=== PATIENT | female | born 1990 | race Hispanic/Latino ===

== ENCOUNTER 2019-07-20 20:21 | Observation (INO) | payer OTHER, SELFPAY ==
--- NOTE | ~2019-07-20 | CT_ITS ---
EXAMINATION: CT abdomen pelvis w con EXAM DATE: 07/20/2019 20:53 INDICATION: Upper abdominal pain for 4 hours. Nausea and vomiting. TECHNIQUE: Spiral CT of the abdomen and pelvis was performed following intravenous injection of 100 m L Omnipaque 350. Axial, coronal and sagittal images were reviewed. The dose-length product (DLP) fo r this examination was 1503.13 mGy-cm. The exposure was tailored according to patient size (auto mA exposure control), and iterative reconstruction (ASIR) was used as additional dose reduction techniqu e. There is no prior study for comparison. FINDINGS: The liver, spleen, adrenal glands and pancreas are unremarkable. There is a poorly periphe rally calcified gallstone measuring about 2 cm within dependent aspect of gallbladder. Gallbladder is moderately distended but otherwise unremarkable. Portal and splenic veins are patent. Kidneys enha nce symmetrically. There is no hydronephrosis. The uterus is anteverted and morphologically normal . The bladder is collapsed at time of imaging limiting evaluation. There is no retroperitoneal or pelvic lymphadenopathy. The appendix is normal. The stomach and small bowel are unremarkable. There is expected amount of c olonic stool. No free intraperitoneal gas. The heart is normal in size. There are no pericardial or pleural effusions. The lung bases are unremarkable. The bones are unremarkable. IMPRESSION: Cholelithiasis, moderately distended but otherwise unremarkable gallbladder. If clinical ly indicated, consider follow-up right upper quadrant sonogram. Reviewed, dictated and finalized at location A. UTER SYSTEMS MANAGER IMPRESSION: Cholelithiasis, moderately distended but otherwise unremarkable gal lbladder. If clinically indicated, consider follow-up right upper quadrant son ogram.
[2019-07-20 20:23] VITALS: BP 132/83; PULSE 87; RESP 18; TEMP 37.4; O2SAT 100
--- NOTE | 2019-07-20 20:33 | ED.ABDPAIN ---
HPI - Abdominal Pain General Chief Complaint: Abdominal Pain Stated Complaint: abd pain Time Seen by Provider: 07/20/19 20:27 Source: patient and RN notes reviewed Mode of arrival: ambulatory Limitations: no limitations History of Present Illness HPI narrative: Pt is a 28 y/o female who presents to the ED with c/o epigastric pain starting around 16:00 this afternoon. She notes that she took some sort of pain medication she found in her home around 18:00, but denied having any relief from the medication. Pt denies any nausea, vomiting, diarrhea, fever, or chills. She currently denies any chance of being . MD elicited complaint: abdominal pain Onset (ago): hour(s) (4) Location: epigastric Relieving factors: nothing Associated symptoms: denies other symptoms Treatments prior to arrival: other (unknown analgesic) Related Data Home Medications Medication Instructions Recorded Confirmed diclofenac sodium 75 mg PO DAILY 07/20/19 07/20/19 doxycycline monohydrate 100 mg PO BID 07/20/19 07/20/19 Allergies Allergy/AdvReac Type Severity Reaction Status Date / Time No Known Allergies Allergy Verified 07/20/19 20:36 Review of Systems Review of Systems: All systems reviewed & are unremarkable except as noted in HPI and below Constitutional: Constitutional: Denies chills and Denies fever(s) Gastrointestinal: Gastrointestinal: Reports abdominal pain (epigastric pain), Denies diarrhea, Denies nausea and Denies vomiting PMFSH Past Medical History Medical History Anemia Depression Oligohydramnios Ovarian cyst Surgical History Surgical History Hx of ovarian cystectomy Social History Social History Smoking status: Former smoker 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 Exam Narrative: Exam Narrative: APPEARANCE: No acute distress, nontoxic, resting in bed EYES: EOMI HEENT: Normocephalic, atraumatic, OMM RESPIRATORY: No respiratory distress Clear to auscultation bilaterally with no rhonchi wheezing or rales. CARDIOVASCULAR: Regular rate and rhythm without murmurs rubs or gallops. ABDOMINAL: Soft, nondistended, tender palpation in epigastric and right upper quadrant, no tenderness left upper quadrant, right lower quadrant left lower quadrant, no rebound or guarding MUSCULOSKELETAl: Moves all extremities. No clubbing, cyanosis or edema. NEURO: Awake and alert. Following commands, speech normal, no focal deficits SKIN:: Warm, dry. No rashes lesions or abrasions PSYCHIATRIC: Normal affect/mood, Course Course Emergency Course: Discussed with patient and family results of workup and diagnosis. Discussed need for admission. Patient and family understand and agree to current treatment plan Consultations Consultation #1: Discussed case with general surgeon, Dr. Astorga. Accepts admission. Requests no antibiotics at this time. Date: 07/20/19 Time: 22:57 Vital Signs Vital signs: Vital Signs Temperature 99.3 F 07/20/19 20:23 Pulse Rate 87 07/20/19 20:23 Respiratory Rate 18 07/20/19 20:23 Blood Pressure 132/83 07/20/19 20:23 Pulse Oximetry 100 07/20/19 20:23 Temperature 99.3 F 07/20/19 20:23 Pulse Rate 64 07/20/19 23:10 Respiratory Rate 20 07/20/19 23:10 Blood Pressure 121/80 07/20/19 23:10 Pulse Oximetry 99 07/20/19 23:10 MDM - Abdominal Pain Lab Data Result diagrams: 07/20/19 20:41 07/20/19 20:47 Labs: Lab Results 07/20/19 07/20/19 07/20/19 Range/Units 20:41 20:41 20:41 WBC 12.6 H (4.5-10.0) K/mm3 RBC 4.47 (4.2-5.4) M/mm3 Hgb 11.0 L (12.0-15.0) g/dL Hct 35.4 L (37.0-47.0) % MCV 79.2 L (80-100) fl MCH 24.6 L (26-34) pg MCHC 31.1 L (32-36) g/dl RDW 17.6 H (11.5-14.5) % Plt Count 383 H (150-375) k/mm3 MPV 10.3 (7.4-10.4) fl Immature Gran % (Auto) 0.3
[2019-07-20] MEDS: KETOROLAC 30 MG/ML VIAL (*BKC) IV PUSH (20:41)
[2019-07-20] MEDS: LACTATED RINGERS 1,000 ML 999 ML IV CONT (20:41)
[2019-07-20 20:47] LABS: Basophils Percent Auto 0.2 % (0.2-1.2); Eosinophils Absolute Auto 0.2 K/mm3 (0-0.3); Eosinophils Percent Auto 1.4 % (0-4.4); Hematocrit 35.4 % (37.0-47.0); Immature Granulocyte Absolute 0.04 K/mm3 (0.00-0.031); Immature Granulocyte Percent A 0.3 % (0-0.5); Lymphocytes Absolute Auto 2.11 K/mm3 (0.9-3.2); Lymphocytes Percent Auto 16.8 % (18.3-44.2); Mean Corpuscular HGB Conc 31.1 g/dl (32-36); Mean Corpuscular Hemoglobin 24.6 pg (26-34); Mean Corpuscular Volume 79.2 fl (80-100); Mean Platelet Volume 10.3 fl (7.4-10.4); Monocytes Absolute Auto 0.8 K/mm3 (0.1-0.6); Monocytes Percent Auto 6.1 % (2.6-8.5); Neutrophils Absolute Auto 9.5 K/mm3 (1.3-6.7); Neutrophils Percent Auto 75.2 % (45.5-73.1); Platelet Count Result 383 k/mm3 (150-375); Red Blood Count 4.47 M/mm3 (4.2-5.4); Red Cell Distribution Width 17.6 % (11.5-14.5); White Blood Count 12.6 K/mm3 (4.5-10.0)
[2019-07-20 20:49] LABS: Blood Urea Nitrogen 11 mg/dL (8-26); Estimated CRCL calculation 119 ml/min; Estimated Glomerular Filt Rate > 60
[2019-07-20 20:50] LABS: Add Urine Microscopic? YES; Appearance Urine Cloudy (Clear); Bacteria Urine Trace /hpf; Bilirubin Urine Negative (Negative); Blood Urine Negative (Negative); Color Urine Yellow (Yellow); Glucose Urine UA Negative (Negative); Ketones Urine Negative (Negative); Leukocyte Esterase Ur Trace LEU/UL (Negative); Mucus Urine Rare /lpf; Nitrate Urine Negative (Negative); Protein Urine 1+ mg/dL (Negative); RBC Urine 0-2 /hpf (0-2); Specific Grav Ur 1.018 (1.001-1.035); Squamous Epithelial Cell Urine Many /hpf (Few); Urobilinogen Urine Negative mg/dL (<2.0)
[2019-07-20 20:58] LABS: Alanine Aminotransferase 45 U/L (4-35); Albumin Level 4.4 g/dL (3.5-5.1); Alkaline Phosphatase 140 U/L (38-126); Aspartate Amino Transferase 62 U/L (14-36); Bilirubin,Total 0.4 mg/dL (0.2-1.3); Blood Urea Nitrogen 12 mg/dL (7-17); Calcium 9.3 mg/dL (8.4-10.2); Carbon Dioxide 26 mmol/L (22-30); Chloride 98 mmol/L (98-107); Estimated CRCL calculation 134 ml/min; Estimated Glomerular Filt Rate > 60; Glucose 114 mg/dL (65-105); Lipase 52 U/L (23-300); Potassium 3.5 mmol/L (3.4-5.0); Sodium 137 mmol/L (137-145)
[2019-07-20 21:31] VITALS: BP 127/84; PULSE 68; RESP 20; O2SAT 99
[2019-07-20] MEDS: MORPHINE SULFATE 4 MG/ML INJ IV PUSH (22:05)
[2019-07-20 22:07] VITALS: BP 123/84; PULSE 71; RESP 20; O2SAT 100
[2019-07-20] MEDS: MORPHINE SULFATE 2 MG/ML INJ IV PUSH (23:09)
[2019-07-20 23:10] VITALS: BP 121/80; PULSE 64; RESP 20; O2SAT 99
[2019-07-20 23:22] VITALS: BP 121/80; PULSE 64; RESP 20; O2SAT 99
[2019-07-20 23:30] VITALS: BP 145/80; PULSE 65; RESP 18; TEMP 36.3; O2SAT 100; BMI 42.5
[2019-07-20] MEDS: LACTATED RINGERS 1,000 ML 125 ML IV CONT (23:33)
--- NOTE | 2019-07-20 23:40 | ADMGEN ---
This patient, Ema Stanford, was admitted to 3 [facility] Surg Room 301-01. Patient/family oriented to hospital policies and general routines including ID bracelet, bed and alarms, visiting hours, pain management, procedures, bathroom and other care routines, personal items, smoking policy, room service/diet, and visiting hours. Valuables list has been completed. Information on how to activate the Rapid Response Team has been discussed. Patient/Family are encouraged to report perceived risks to care and to ask questions if they do not understand what they are told or what they should do.
[2019-07-21] VITALS (13 sets, daily range): BP systolic 109–128; BP diastolic 54–73; PULSE 55–76; RESP 10–21; TEMP 36.2–36.8; O2SAT 96–100; BMI 43.6
[2019-07-21] MEDS: ONDANSETRON INJ 4 MG/2 ML VIAL IV PUSH ×5 (01:03→23:07)
[2019-07-21] MEDS: LACTATED RINGERS 1,000 ML 125 ML IV CONT (06:18)
[2019-07-21 06:28] LABS: Basophils Percent Auto 0.1 % (0.2-1.2); Eosinophils Absolute Auto 0.1 K/mm3 (0-0.3); Eosinophils Percent Auto 1.6 % (0-4.4); Hematocrit 29.6 % (37.0-47.0); Hemoglobin 9.5 g/dL (12.0-15.0); Immature Granulocyte Absolute 0.02 K/mm3 (0.00-0.031); Immature Granulocyte Percent A 0.3 % (0-0.5); Lymphocytes Absolute Auto 1.09 K/mm3 (0.9-3.2); Lymphocytes Percent Auto 15.8 % (18.3-44.2); Mean Corpuscular HGB Conc 32.1 g/dl (32-36); Mean Corpuscular Hemoglobin 24.8 pg (26-34); Mean Corpuscular Volume 77.3 fl (80-100); Mean Platelet Volume 10.1 fl (7.4-10.4); Monocytes Absolute Auto 0.4 K/mm3 (0.1-0.6); Monocytes Percent Auto 5.8 % (2.6-8.5); Neutrophils Absolute Auto 5.3 K/mm3 (1.3-6.7); Neutrophils Percent Auto 76.4 % (45.5-73.1); Platelet Count Result 313 k/mm3 (150-375); Red Blood Count 3.83 M/mm3 (4.2-5.4); Red Cell Distribution Width 17.6 % (11.5-14.5); White Blood Count 6.9 K/mm3 (4.5-10.0)
[2019-07-21 06:36] LABS: Alanine Aminotransferase 64 U/L (4-35); Albumin Level 3.6 g/dL (3.5-5.1); Alkaline Phosphatase 125 U/L (38-126); Aspartate Amino Transferase 80 U/L (14-36); Bilirubin,Total 0.3 mg/dL (0.2-1.3); Blood Urea Nitrogen 10 mg/dL (7-17); Carbon Dioxide 25 mmol/L (22-30); Chloride 102 mmol/L (98-107); Estimated CRCL calculation 156 ml/min; Estimated Glomerular Filt Rate > 60; Glucose 104 mg/dL (65-105); Sodium 136 mmol/L (137-145)
--- NOTE | 2019-07-21 09:11 | PM.IMHP ---
H&P: HPI History of Present Illness Chief complaint: CHOLECYSTITIS Narrative: Ema Stanford is a 28 year old female who presented to the ED yesterday with complaints of epigastric abdominal pain. She reports that this is her 3rd episode of this similar pain. She initially had an episode of epigastric pain new year's day after eating a large meal with ham. She described it as a tight pain and also ?shoulder weakness? that lasted for 1-2 hours and resolved spontaneously. With this episode, she does report having some chest pressure that resolved when the abdominal pain resolved. She then had this occur again 3 days ago. She cannot recall when the pain started and if she had eaten prior to this. She states that she made herself vomit and the pain resolved. Then, yesterday after eating ribs she had a sudden onset of the same type of epigastric pain around 1600, about 2 hours after eating, that was a tight cramping pain. This time, the pain radiated to her mid back. She states her shoulders felt weak again, but her pain did not resolve spontaneously. The pain was unrelenting and she decided to present to the emergency department for further evaluation. CT scan of abdomen and pelvis showed cholelithiasis with moderate distention of the gallbladder, otherwise an unremarkable gallbladder. Labs revealed a slightly elevated white blood cell count of 12,600, hemoglobin 11, and hematocrit 35.4. AST and ALT were slightly elevated, total bilirubin normal, and lipase normal. Our service was contacted for surgical evaluation for concern of acute versus chronic cholecystitis with ongoing abdominal pain. The patient was admitted and made NPO. She was started on IV fluids, analgesics, and antiemetics. The patient is now being seen on medical floor. She reports her abdominal pain has remained constant even with the IV morphine, but has improved some. She is now reporting the pain is a 4/10 on a pain scale and states it is still in the epigastric area radiating to her mid back. She reports nausea with vomiting today. She has vomited 3 times since being admitted. She feels this may be related to the IV morphine. She denies any chest pain or pressure at this time. Denies any shortness of breath, fever, chills, or change in bowel habits. No other complaints at this time. Review of Systems Review of Systems: All systems reviewed & are unremarkable except as noted in HPI and below Constitutional: Constitutional: Reports as per HPI, Denies chills, Denies excessive sweating, Denies fatigue, Denies fever(s), Denies headache(s) and Denies weakness Eyes: Eyes: Denies change in vision and Denies eye pain ENT: Denies dysphagia, Denies dizziness, Denies dry mouth, Denies headache(s), Denies hearing loss and Denies mouth pain Cardiovascular: Cardiovascular: Denies chest pain, Denies pedal edema, Denies radiating jaw, neck or arm pain, Denies dyspnea and Denies dyspnea on exertion Respiratory: Respiratory: Denies cough, Denies dyspnea, Denies dyspnea on exertion and Denies wheezing Gastrointestinal: Gastrointestinal: Reports as per HPI, Reports abdominal pain (Epigastric radiating to her mid back), Denies melena, Denies hematochezia, Denies change in bowel habits, Denies constipation, Denies dysphagia, Denies diarrhea, Reports nausea and Reports vomiting Musculoskeletal: Musculoskeletal: Denies abnormal gait, Denies deformity, Denies joint swelling, Denies numbness and Denies tingling Integumentary/Breasts: Skin/Breast: Denies new lesions, Denies rash, Denies wounds and Denies jaundice Neurologic: Denies abnormal gait, Denies dizziness, Denies headache(s), Denies numbness, Denies tingling and Denies weakness Psychiatric: Psychiatric: Denies anxiety and Reports depression (History of depression. Does not take home medications for this.) Endocrine: Endocrine: Denies cold intolerance and Denies excessive sweating Hematologic/Lymphatic: Hematologic/Lymphatic: Denies eas
[2019-07-21] MEDS: LACTATED RINGERS 1,000 ML 30 ML IV CONT ×2 (15:30→17:24)
--- NOTE | 2019-07-21 15:34 | WPDANESEPPF ---
Anes - Initial Pre Proc Eval Procedure: Operation Date: 07/21/19 16:30 Proposed Procedures p Laparoscopic Cholecystectomy,Possible Open - Jack Astorga DO Date/Time: 07/21/19 15:34 Surgeon: Jack Astorga DO Pre Op Diagnosis: CHOLECYSTITIS Patient Data Age: 28 Gender: F Height: 5 ft 6 in Weight: 119.5 kg Last Vital Signs Temp 36.3 C L 07/21/19 08:50 Pulse 66 07/21/19 08:50 Resp 16 07/21/19 08:50 BP 109/67 07/21/19 08:50 Pulse Ox 97 07/21/19 08:50 Allergies Allergy/AdvReac Type Severity Reaction Status Date / Time No Known Allergies Allergy Verified 07/20/19 20:36 Home Medications Medication Instructions Recorded Confirmed Type diclofenac sodium 75 mg PO DAILY 07/20/19 07/20/19 History doxycycline monohydrate 100 mg PO BID 07/20/19 07/20/19 History Laboratory Tests 07/20/19 07/20/19 07/20/19 20:41 20:41 20:41 WBC 12.6 K/mm3 H K/mm3 (4.5-10.0) RBC 4.47 M/mm3 M/mm3 (4.2-5.4) Hgb 11.0 g/dL L g/dL (12.0-15.0) Hct 35.4 % L % (37.0-47.0) MCV 79.2 fl L fl (80-100) MCH 24.6 pg L pg (26-34) MCHC 31.1 g/dl L g/dl (32-36) RDW 17.6 % H % (11.5-14.5) Plt Count 383 k/mm3 H k/mm3 (150-375) MPV 10.3 fl fl (7.4-10.4) Immature Gran % (Auto) 0.3 % % (0-0.5) Neut % (Auto) 75.2 % H % (45.5-73.1) Lymph % (Auto) 16.8 % L % (18.3-44.2) Major % (Auto) 6.1 % % (2.6-8.5) Eos % (Auto) 1.4 % % (0-4.4) Baso % (Auto) 0.2 % % (0.2-1.2) Lymph # (Auto) 2.11 K/mm3 K/mm3 (0.9-3.2) Major # (Auto) 0.8 K/mm3 H K/mm3 (0.1-0.6) Eos # (Auto) 0.2 K/mm3 K/mm3 (0-0.3) Baso # (Auto) 0.0 K/mm3 K/mm3 (0.0-0.1) Abs Immat Gran (auto) 0.04 K/mm3 H K/mm3 (0.00-0.031) Absolute Neuts (auto) 9.5 K/mm3 H K/mm3 (1.3-6.7) Absolute Nucleated RBC 0.0 K/mm3 K/mm3 (0.0-0.012) Nucleated RBC % 0.0 % % (0.0-0.2) Sodium 137 mmol/L mmol/L (137-145) Potassium 3.5 mmol/L mmol/L (3.4-5.0) Chloride 98 mmol/L mmol/L (98-107) Carbon Dioxide 26 mmol/L mmol/L (22-30) BUN 12 mg/dL mg/dL (7-17) Creatinine 0.70 mg/dL mg/dL (0.7-1.0) Estim Creat Clear Calc 134 ml/min ml/min Estimated GFR > 60 (59 - ) Glucose 114 mg/dL H mg/dL (65-105) Calcium 9.3 mg/dL mg/dL (8.4-10.2) Total Bilirubin 0.4 mg/dL mg/dL (0.2-1.3) AST 62 U/L H U/L (14-36) ALT 45 U/L H U/L (4-35) Alkaline Phosphatase 140 U/L H U/L (38-126) Total Protein 8.0 g/dL g/dL (6.3-8.2) Albumin 4.4 g/dL g/dL (3.5-5.1) Lipase 52 U/L U/L (23-300) Urine Color Yellow (Yellow) Urine Appearance Cloudy H (Clear) Urine pH 7.0 (5.0-9.0) Ur Specific [place] 1.018 (1.001-1.035) Urine Protein 1+ mg/dL H mg/dL (Negative) Urine Glucose (UA) Negative mg/dL mg/dL (Negative) Urine Ketones Negative mg/dL mg/dL (Negative) Ur Blood (Man) Negative (Negative) Urine Nitrate Negative (Negative) Urine Bilirubin Negative (Negative) Urine Urobilinogen Negative mg/dL mg/dL (<2.0) Leukocyte Esterase Rfl Trace MYA/UL H MYA/UL (Negative) Urine RBC 0-2 /hpf /hpf (0-2) Urine WBC 4-6 /hpf H /hpf Ur Squamous Epith Cells Many /hpf H /hpf (Few) Urine Bacteria Trace /hpf /hpf Hyaline Casts 1-2 /lpf /lpf (None) Urine Mucus Rare /lpf /lpf 07/20/19 07/21/19 07/21/19 20:47 05:43 05:43 WBC 6.9 K/mm3 K/mm3 (4.5-10.0) RBC 3.83 M/mm3 L M/mm3 (4.2-5.4) Hgb 9.5 g/dL L g/dL (12.0-15.0) Hct 29.6 % L %
[2019-07-21] MEDS: IBUPROFEN IV 800 MG/200 ML 800 MG/200 ML BAG 400 MG IVPB (15:52)
[2019-07-21] MEDS: ceFAZolin 3 GM/D5W 100 ML 100 ML IVPB (16:31)
[2019-07-21] MEDS: BUPIVACAINE/EPINEPHRINE 0.5% 30 ML VIAL INFILTRATE (17:02)
--- NOTE | 2019-07-21 17:26 | PM.PROC ---
Procedure Note - Detailed Date of procedure: 07/21/19 Pre-op diagnosis: Acute calculous cholecystitis Post-op diagnosis: same Procedure performed: Laparoscopic Cholecystectomy Description of procedure: Procedure as well as risks, benefits, and alternatives were discussed with patient. Written consent was obtained and placed in chart prior to procedure. The patient was brought back to surgical suite. Patient was placed in supine position on operating table. Time-out was done to confirm patient and procedure. Patient was then intubated by the anesthesia department. Abdomen was prepped and draped in sterile fashion using chlorhexidine prep. 0.5% bupivacaine with epinephrine was infiltrated at each site of incision. A 5 millimeter incision was made near the umbilicus, and a 5 millimeter Optiview trocar was advanced through the abdominal layers under direct visualization. Once inside the abdominal cavity, carbon dioxide was insufflated to create a pneumoperitoneum. The camera was inserted and the abdomen was inspected. No immediate abnormalities were identified. The patient was placed in reverse Trendelenburg position and rotated slightly to the left. An 11 millimeter incision was made in the subxiphoid region, and an 11 millimeter trocar was inserted under direct visualization. Two 5 millimeter incisions were made in the right upper quadrant, and two 5 millimeter trocars were inserted under direct visualization. The gallbladder was identified and grasped at the fundus and retracted superiorly. It was then grasped at the infundibulum retracted laterally. Careful dissection around the neck of the gallbladder was performed using blunt dissection with a [place] grasper and hook electrocautery. The cystic duct was identified, and a window was created behind it. The cystic artery was also identified and a window was created behind it. The critical view of safety was identified, visualizing the cystic duct running directly into the neck of the gallbladder, and the cystic artery running directly into the wall of the gallbladder. A 5 millimeter clip education department registrar was then used to place 2 clips proximally and 1 clip distally on both the cystic duct and cystic artery. They were then both transected using endoscopic scissors. Once safely away from the barbara hepatitis, the gallbladder was dissected free from the liver bed using hook electrocautery. Hemostasis was achieved along the way. The gallbladder was removed completely and then removed through the subxiphoid port. The liver bed was then inspected. Hemostasis appeared adequate, and our clips appeared secure. The area was gently irrigated with sterile saline. No other abnormalities were seen. The patient was flattened out in bed, and 1 final inspection was made around the abdominal cavity. The subxiphoid port was removed, and a Pa Jose Raul cone was used to approximate the fascia with an 0-Vicryl simple interrupted suture. The remaining ports were then removed under direct visualization, the camera was removed, and the pneumoperitoneum was released. The skin of the incisions was approximated using 4-0 Monocryl subcuticular sutures. Exofin glue was applied on top. The patient was then awakened from anesthesia, extubated, and transferred to recovery. Anesthesia: GETA and local (0.5% bupivicaine with epi) Surgeon: Jack Astorga DO Estimated blood loss (mL): 20 Drains: No Packing: No Pathology: yes Complications: No immediate complications Condition: stable (Patient tolerated procedure well, and is currently resting comfortably in recovery.) Disposition: same day Findings: This is a 28-year-old woman who presented to the emergency department overnight with right upper quadrant pain for the past 2 days. She had a couple minor episodes like this over the past week, but this time the pain became persistent and more severe. CT in the emergency department showed evidence of acute calculous cholecystitis with a
[2019-07-21] MEDS: HYDROMORPHONE HCL 1 MG/ML INJ 0.25 MG IV PUSH ×4 (17:57→18:20)
--- NOTE | 2019-07-21 18:29 | SUR.PHASEI ---
[id number] report given to rowena rice. attempted to update family in waiting room,already went to pt room
[2019-07-21] MEDS: LACTATED RINGERS 1,000 ML 100 ML IV CONT (18:57)
--- NOTE | 2019-07-21 20:04 | PC.NURSE ---
Patient arrived on our floor from PACU @1850, pain stated to be 10/10, medication was used to treat pain and nausea along with position change.
[2019-07-21] MEDS: MORPHINE SULFATE 4 MG/ML INJ IV PUSH (20:26)
--- NOTE | 2019-07-21 20:38 | PC.NURSE ---
Dr. Harris notified about the patient needing to stay one more night due to post-op pain and nausea.
[2019-07-22 02:00] VITALS: BP 115/68; PULSE 58; RESP 16; TEMP 36.8; O2SAT 99
[2019-07-22] MEDS: MORPHINE SULFATE 4 MG/ML INJ IV PUSH (02:33)
[2019-07-22 05:54] VITALS: BP 108/58; PULSE 63; RESP 18; TEMP 36.8; O2SAT 97
[2019-07-22 06:24] LABS: Hematocrit 30.4 % (37.0-47.0); Hemoglobin 9.7 g/dL (12.0-15.0); Mean Corpuscular HGB Conc 31.9 g/dl (32-36); Mean Corpuscular Hemoglobin 24.9 pg (26-34); Mean Corpuscular Volume 78.1 fl (80-100); Platelet Count Result 365 k/mm3 (150-375); Red Blood Count 3.89 M/mm3 (4.2-5.4); Red Cell Distribution Width 17.5 % (11.5-14.5); White Blood Count 8.4 K/mm3 (4.5-10.0)
[2019-07-22] MEDS: IBUPROFEN 600 MG TABLET PO (06:32)
[2019-07-22 07:06] LABS: Alanine Aminotransferase 50 U/L (4-35); Albumin Level 3.5 g/dL (3.5-5.1); Alkaline Phosphatase 114 U/L (38-126); Aspartate Amino Transferase 43 U/L (14-36); Bilirubin,Total 0.2 mg/dL (0.2-1.3); Blood Urea Nitrogen 6 mg/dL (7-17); Calcium 8.7 mg/dL (8.4-10.2); Carbon Dioxide 24 mmol/L (22-30); Chloride 100 mmol/L (98-107); Estimated CRCL calculation 180 ml/min; Estimated Glomerular Filt Rate > 60; Glucose 110 mg/dL (65-105); Sodium 137 mmol/L (137-145)
[2019-07-22 08:00] VITALS: BP 113/63; PULSE 59; RESP 16; TEMP 36.3; O2SAT 98
--- NOTE | 2019-07-22 09:33 | WPDANESPN ---
Anes - Prog Note Post-Op Date/Time: 07/22/19 09:33 Cardiovascular status: normal Respiratory status: normal Airway patency: baseline Mental status: baseline Post-Op hydration status: normal Vital Signs: Last Vital Signs Temp 36.3 C L 07/22/19 08:00 Pulse 59 L 07/22/19 08:00 Resp 16 07/22/19 08:00 BP 113/63 07/22/19 08:00 Pulse Ox 98 07/22/19 08:00 I/O: Intake & Output 07/21/19 07/22/19 07/22/19 23:59 07:59 15:59 Intake Total 800 250 360 Balance 800 250 360 Laboratory Tests 07/22/19 05:30 07/22/19 05:30 07/22/19 07/22/19 05:30 05:30 WBC 8.4 RBC 3.89 L Hgb 9.7 L Hct 30.4 L MCV 78.1 L MCH 24.9 L MCHC 31.9 L RDW 17.5 H Plt Count 365 MPV 10.0 Sodium 137 Potassium 4.0 Chloride 100 Carbon Dioxide 24 BUN 6 L Creatinine 0.50 L Estim Creat Clear Calc 180 Estimated GFR > 60 Glucose 110 H Calcium 8.7 Total Bilirubin 0.2 AST 43 H ALT 50 H Alkaline Phosphatase 114 Total Protein 7.0 Albumin 3.5 Post-procedural complaints: none Patient Feedback: Patient satisfied with anesthetic care.
[2019-07-22] MEDS: ONDANSETRON INJ 4 MG/2 ML VIAL IV PUSH (11:02)
[2019-07-22 14:00] VITALS: BP 121/69; PULSE 57; RESP 16; TEMP 36.4; O2SAT 100
--- NOTE | 2019-07-22 14:26 | PM.PNGS ---
Progress Note: A&P Assessment and Plan (1) Nausea: Code(s): R11.0 - Nausea Status: Acute Assessment and Plan: Nausea seems to be improving but still requiring IV Zofran. Since she has been up and walking, she seems to be feeling better. Continue antiemetics. Minimize narcotics. Will keep her overnight to monitor the nausea and vomiting. (2) Acute cholecystitis: Code(s): K81.0 - Acute cholecystitis Status: Acute Assessment and Plan: POD1 and doing fair. Has been experiencing some nausea but this seems to be improving with current treatment. Encouraged the patient to continue getting up and walking the halls as tolerated. Encouraged continued IS use. Will repeat labs again in the morning. Hopefully, we will be able to discharge tomorrow if patient is doing well. (3) Morbid obesity with BMI of 40.0-44.9, adult: Code(s): E66.01 - Morbid (severe) obesity due to excess calories; Z68.41 - Body mass index (BMI) 40.0-44.9, adult Status: Acute (4) Anemia: Code(s): D64.9 - Anemia, unspecified Status: Acute (5) Depression: Code(s): F32.9 - Major depressive disorder, single episode, unspecified Status: Acute Subjective Subjective Date/Time Seen: 07/22/19 12:26 Post Op day: 1 (laparoscopic cholecystectomy) Patient reports: pain is less, flatus, no bowel movement, nausea and vomiting Interval history: Patient seen and examined twice today, once earlier this morning around 9 am and then again at 12:26 pm. This morning the patient had some nausea an episode of vomiting prior to breakfast. She states the nausea had improved and she associated it with the hydrocodone she had taken overnight. She had not gotten out of bed and walked in the halls and denied flatus at that time. No other complaints. I then switched her hydrocodone to Tylenol #3 to use if the ibuprofen wasn't controlling her pain to see if the change in narcotics would help. I came back at this time to see the patient a second time and she was feeling better and has had no other episodes of vomiting. She reports feeling some nausea again but has not taken any narcotics at all today since I saw her. She has only taken ibuprofen for the pain, which is tolerable and only located at her incisions. The nurse had given her Zofran a bit ago and felt that helped. She has gotten up and walked the halls and overall felt better, other than the nausea. Voiding without difficulty. Denies any other complaints at this time. Review of Systems Review of Systems: All systems reviewed & are unremarkable except as noted in HPI and below Constitutional: Constitutional: Denies chills, Denies fatigue and Denies weakness Cardiovascular: Cardiovascular: Denies chest pain and Denies leg edema Respiratory: Respiratory: Reports no additional respiratory complaints, Denies cough and Denies dyspnea Gastrointestinal: Gastrointestinal: Reports abdominal pain (incisional), Reports belching, Denies bloating, Reports nausea and Denies vomiting Genitourinary: Genitourinary: Reports no additional female genitourinary complaints and Denies dysuria Exam Const: General: comfortable, no acute distress, alert and awake Orientation/consciousness: patient oriented x3 Resp: Effort & Inspection: normal respiratory effort Auscultation: clear to auscultation bilaterally Cardio: Rate: regular rate Rhythm: regular rhythm GI: Inspection: non-distended and incision (Abdominal incisions healing as expected. Clean/dry/intact.) GI Palp: Yes Soft to palpation, Yes Tenderness to palpation present (GI) (expected incisional tenderness ), No Guarding due to palpation present (GI) and No Rebound tenderness present Auscultation: normal bowel sounds Neuro: General: moves all extremities Cranial nerves: Yes CN's II-XII intact bilaterally Speech: normal speech Extrem: General: no calf tenderness and no edema Psych: Mental Status: mental status grossly normal Attitud
[2019-07-22 22:00] VITALS: BP 106/52; PULSE 64; RESP 18; TEMP 36.4; O2SAT 100
[2019-07-23 05:57] VITALS: BP 113/53; PULSE 70; RESP 18; TEMP 36.7; O2SAT 98
[2019-07-23 06:13] LABS: Hematocrit 29.3 % (37.0-47.0); Hemoglobin 9.1 g/dL (12.0-15.0); Mean Corpuscular HGB Conc 31.1 g/dl (32-36); Mean Corpuscular Hemoglobin 24.7 pg (26-34); Mean Corpuscular Volume 79.4 fl (80-100); Platelet Count Result 334 k/mm3 (150-375); Red Blood Count 3.69 M/mm3 (4.2-5.4); White Blood Count 7.2 K/mm3 (4.5-10.0)
[2019-07-23 06:38] LABS: Alanine Aminotransferase 35 U/L (4-35); Albumin Level 3.4 g/dL (3.5-5.1); Alkaline Phosphatase 95 U/L (38-126); Aspartate Amino Transferase 25 U/L (14-36); Bilirubin,Total 0.2 mg/dL (0.2-1.3); Blood Urea Nitrogen 10 mg/dL (7-17); Calcium 8.6 mg/dL (8.4-10.2); Carbon Dioxide 29 mmol/L (22-30); Chloride 101 mmol/L (98-107); Estimated CRCL calculation 133 ml/min; Estimated Glomerular Filt Rate > 60; Glucose 92 mg/dL (65-105); Potassium 3.7 mmol/L (3.4-5.0); Sodium 135 mmol/L (137-145)
[2019-07-23] MEDS: IBUPROFEN 600 MG TABLET PO (06:45)
--- NOTE | 2019-07-23 08:55 | PM.DS ---
DS: Diagnosis Admitting Diagnosis Admitting Diagnosis: Acute cholecystitis Discharge Diagnosis (1) Morbid obesity with BMI of 40.0-44.9, adult: Code(s): E66.01 - Morbid (severe) obesity due to excess calories; Z68.41 - Body mass index (BMI) 40.0-44.9, adult Status: Acute (2) Anemia: Code(s): D64.9 - Anemia, unspecified Status: Acute (3) Depression: Code(s): F32.9 - Major depressive disorder, single episode, unspecified Status: Acute DS: Summary Hospital Course Reason for hospitalization: Ema Stanford is a 28 year old female who presented to the ED with complaints of epigastric abdominal pain multiple occasions. With the last onset of abdominal pain, the pain had continued and she presented to the emergency department for further evaluation. CT scan of abdomen and pelvis showed cholelithiasis with moderate distention of the gallbladder, otherwise an unremarkable gallbladder. Labs revealed a slightly elevated white blood cell count of 12,600. Our service was contacted and the decision was made to admit the patient for surgical evaluation for possible acute cholecystitis. Hospital Course: The patient was admitted and decision was made to proceed with a laparoscopic cholecystectomy that was performed on 07/21/[address] Astorga. The patient stayed overnight following surgery due to nausea and vomiting. Yesterday morning, the patient was seen and still having some nausea and had an episode of vomiting again early yesterday morning. Throughout the day, her pain medication was adjusted and she minimize narcotics. She was also treated with antiemetics. She began to improve and states that by the evening she had no more nausea. She denies any further episodes of vomiting. She had a good night without any complaints. This morning the patient is seen and denies any nausea at this time. Her pain has been well controlled and she has tried the hydrocodone again, which did not make her nauseated. Therefore, she will be sent home with hydrocodone for pain control as needed as prescribed. She is tolerating a low-fat diet this morning. She is tolerating activity and reports flatus at this time. Denies any other complaints at this time. She is stable for discharge. I discussed all discharge care instructions with her yesterday and again today. All questions answered. Status at Discharge Functional status at discharge: independent ambulation Overall status at discharge: patient is progressing back to baseline Time Spent with Patient Time attestation: Total time spent providing and/or coordinating discharge services: Time spent: Less than 30 minutes Exam Const: General: comfortable, no acute distress, alert and awake Orientation/consciousness: patient oriented x3 GI: Inspection: non-distended and incision (Abdominal incisions healing as expected. Clean/dry/intact.) GI Palp: Yes Soft to palpation, Yes Tenderness to palpation present (GI) (Minimal incisional tenderness), No Guarding due to palpation present (GI) and No Rebound tenderness present Auscultation: normal bowel sounds Neuro: General: patient oriented x3 and moves all extremities Cranial nerves: Yes CN's II-XII intact bilaterally Speech: normal speech Extrem: General: no calf tenderness and no edema Psych: Mental Status: mental status grossly normal Attitude: cooperative Thought process: Normal thought process present Thought content: Yes Normal thought content present DS: Data Data Completed and Pending Pending studies at discharge: Pending at discharge 07/21/19 16:53 Surgical [PTH] Routine Labs on day of discharge: Labs from last 24 hours 07/23/19 07/23/19 05:29 05:29 WBC 7.2 RBC 3.69 L Hgb 9.1 L Hct 29.3 L MCV 79.4 L MCH 24.7 L MCHC 31.1 L RDW 18.0 H Plt Count 334 MPV 10.0 Sodium 135 L Potassium 3.7 Chloride 101 Carbon Dioxide 29 BUN 10 Creatinine 0.70 Estim Creat Clear Calc 133
== END 2019-07-23 10:55 | disposition home or self-care (01) ==
LOC: ANHED 23:15 → ANH3MEDSUR 23:20
PROVIDERS: Nurse Practitioner Family; Admitting Provider Surgery; Emergency Provider Emergency Medicine; PCP Registered Nurse; Visit Provider Surgery
PROC: 0FT44ZZ Resection of Gallbladder, Percutaneous Endoscopic Approach (ICD-10-PCS; CPT 47562; principal; 2019-07-21 16:30)
DX: K80.10 Calculus of gallbladder with chronic cholecystitis without obstruction (principal); K82.8 Other specified diseases of gallbladder; E66.01 Morbid (severe) obesity due to excess calories; D64.9 Anemia, unspecified; Z68.41 Body mass index [BMI] 40.0-44.9, adult; F32.9 Major depressive disorder, single episode, unspecified
CPT/HCPCS: 47562; 36415; 74177; 80053; 81001; 81025; 83690; 85025; 85027; 88304; 96361; 96374; 96375; 96376; 99285; A9270; C1713; G0378; G0379; J0131; J0690; J1100; J1170; J1741; J1885; J2250; J2270; J2405; J2704; J2710; J3010; J7030; J7120; Q9967

== ENCOUNTER 2020-03-08 11:14 | Outpatient (CLI) | payer OTHER, SELFPAY ==
--- NOTE | ~2020-03-08 | US_ITS ---
EXAMINATION: US OB <=14 wk fetus w TV DATE: 03/08/2020 12:13 INDICATION: Left-sided abdominal/pelvic pain and vaginal spotting during first trimester . TECHNIQUE: Real-time pelvic ultrasound utilizing both a transvaginal and transabdominal probe was pe rformed. The interpreting radiologist was not present for the study. COMPARISON: None. FINDINGS: The uterus measures 9.5 x 5.8 x 4.9 cm. There is an intrauterine gestational sac. A tiny yolk sac bu t no definitive pole identified. The sac diameter measures 7 mm, which correlates with an estim ated gestational age of 5 weeks and 2 days. The right ovary measures 3.8 x 3.4 x 3.9 cm. 3.4 cm anechoic likely corpus luteum cyst in the right o vary. The left ovary is not visualized. There is no free fluid in the pelvis. IMPRESSION: 1. Single intrauterine gestational sac with small yolk sac but no pole yet evident likely due t o early stage of . 2. Gestational age by ultrasound based upon mean sac diameter of 5 weeks 2 day(s) +/- 3 day(s) with ultrasound estimated date of delivery (KATIE) of 11/06/2020. Reviewed, dictated and finalized at location A. IMPRESSION: 1. Single intrauterine gestational sac with small yolk sac but no pole ye t evident likely due to early stage of . 2. Gestational age by ultrasound based upon mean sac diameter of 5 weeks 2 day (s) +/- 3 day(s) with ultrasound estimated date of delivery (KATIE) of 11/06/2020.
== END 2020-03-08 11:15 | disposition home or self-care (01) ==
PROVIDERS: PCP Registered Nurse; Visit Provider Obstetrics & Gynecology
DX: O20.0 Threatened abortion (principal)
CPT/HCPCS: 36415; 76801; 76817; 84702

== ENCOUNTER 2021-05-30 09:57 | Emergency (ER) | payer BC, MEDICAID, SELFPAY ==
--- NOTE | ~2021-05-30 | CT_ITS ---
EXAMINATION: CT brain wo con DATE: 05/30/2021 14:10 INDICATION: Headache. TECHNIQUE: Computed tomography (CT) of the head was performed without intravenous contrast. The mA wa s adjusted according to patient size. Iterative reconstruction technique was employed. The dose-lengt h product was 605.33 mGy-cm. COMPARISON: None FINDINGS: There is no intracranial hemorrhage, acute infarction, or abnormal intracranial mass lesion . The ventricles are normal in size. The paranasal sinuses are clear. The orbits are normal. The mast oid air cells are normal. IMPRESSION: 1. Normal brain. Reviewed, dictated and finalized at location A. ANTY ADMINISTRATOR IMPRESSION: 1. Normal brain.
[2021-05-30 09:59] VITALS: BP 135/77; PULSE 92; RESP 18; TEMP 36; O2SAT 100
[2021-05-30 12:40] VITALS: BP 136/74; PULSE 90; O2SAT 100
--- NOTE | 2021-05-30 13:57 | ED.HA ---
HPI - Headache General Chief Complaint: Headache Stated Complaint: multiple complaints Time Seen by Provider: 05/30/21 13:36 History of Present Illness HPI Narrative: Patient is a 30-year-old female who presents ER with headache for 1 month. Reports it been intermittent but has been constant for the last week. No improvement with ibuprofen. She took 2 to 4 tablets of 20 mg ibuprofen intermittently over the last week. No fevers or chills or sweats. No change in vision. She reports brief episode of dizziness and some numbness or heaviness in the left arm. No functional abnormality with the left arm. No falling. No trauma. Denies any neck stiffness. Patient does heavy lifting at her job and reports that her headache tends to be worse in the mornings. Related Data Allergies Allergy/AdvReac Type Severity Reaction Status Date / Time No Known Allergies Allergy Verified 05/30/21 14:21 Review of Systems Review of Systems: All systems reviewed & are unremarkable except as noted in HPI and below Constitutional: Constitutional: Denies chills, Denies fever(s) and Denies weakness Eyes: Eyes: Denies change in vision and Denies photophobia ENT: Denies nasal congestion and Denies sore throat Cardiovascular: Cardiovascular: Denies chest pain, Denies rapid heart rate and Denies radiating jaw, neck or arm pain Respiratory: Respiratory: Denies cough, Denies dyspnea and Denies wheezing Gastrointestinal: Gastrointestinal: Denies abdominal pain, Denies nausea and Denies vomiting Neurologic: Reports dizziness, Reports headache(s), Denies focal weakness and Reports numbness PMFSH Past Medical History Medical History (Updated 05/30/21 @ 14:50 by Sean Sands MD) Anemia Depression Oligohydramnios Ovarian cyst Rosacea Currently on daily doxycycline. Surgical History Surgical History History of laparoscopic cholecystectomy 07/21/2019 Hx of ovarian cystectomy Laparoscopic ovarian cystectomy x 2 in 2010 and 2014. Family History Family History Mother Gallbladder disease Sibling Gallbladder disease Social History Social History Smoking status: Never smoker Alcohol intake: never Substance use: never Additional living arrangements comments: Lives with her and 3 children. 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 Gender identity (if verbalized by the patient): Female Spiritual care concerns: No Agree to blood products: Yes Exam Narrative: GENERAL: Well-appearing, well-nourished, and in no acute distress. HEAD: Normocephalic, atraumatic. EYES: PERRLA and EOMI. ENT: Mucous membranes moist. NECK: Supple. No midline tenderness or meningismus. Full range of motion. CHEST: Clear to auscultation. No respiratory distress. HEART: Regular rate and rhythm. Normal peripheral pulses. EXTREMITIES: Normal range of motion. No edema. SKIN: Warm, dry, no rash. NEURO: Clear speech. Cranial nerves II through XII intact. Ambulates with steady gait. Alert and oriented x3. Course Course Emergency Course: Patient informed results. Headache improving with Toradol. Recommend scheduled anti-inflammatories at home and follow-up with PCP. Discussed if symptoms persist may require MRI that can be ordered by her PCP. She has verbalized understanding this. Vital Signs Vital signs: Vital Signs Temperature 96.8 F L 05/30/21 09:59 Pulse Rate 92 05/30/21 09:59 Respiratory Rate 18 05/30/21 09:59 Blood Pressure 135/77 05/30/21 09:59 Pulse Oximetry 100 05/30/21 09:59 Temperature 96.8 F L 05/30/21 09:59 Pulse Rate 90 05/30/21 12:40 Respiratory Rate 18 05/30/21 09:59 Blood Pressure 136/74 05/30/21 12:40 Pulse Oximetry 100 05/30/21 12:40 MDM - Headache Imaging Data Radiologist's chandrika
[2021-05-30] MEDS: KETOROLAC (*BKC) 60 MG/2 ML VIAL IM (14:22)
== END 2021-05-30 15:01 | disposition home or self-care (01) ==
PROVIDERS: Emergency Provider Emergency Medicine; PCP Registered Nurse
DX: R51.9 Headache, unspecified (principal); Z86.2 Personal history of diseases of the blood and blood-forming organs and certain disorders involving the immune mechanism
CPT/HCPCS: 70450; 96372; 99284; J1885